=== PATIENT | female | born 1990 | race Caucasian/White ===

== ENCOUNTER 2023-12-13 08:08 | Day surgery (SDC) | payer BC ==
[2023-12-13] MEDS: Lactated Ringers 1,000 ML IV SCH (08:18)
[2023-12-13] MEDS ORDERED: Ketamine 200 MG/20 ML MDV ONE (08:32)
[2023-12-13] MEDS ORDERED: fentaNYL 50 MCG/ML SDV ONE (08:32)
[2023-12-13] MEDS ORDERED: Propofol 200 MG/20 ML SDV ONE ×2 (08:32)
[2023-12-13] MEDS ORDERED: Midazolam 1 MG/ML 2 ML SDV ONE (08:32)
[2023-12-13] MEDS ORDERED: Lidocaine 2% 20 ML MDV ONE (08:32)
== END 2023-12-13 10:00 | disposition home or self-care (01) ==
LOC: CC.SDS 08:08
PROVIDERS: ATTEND Family Medicine
DX: K29.50 Unspecified chronic gastritis without bleeding (principal); K21.9 Gastro-esophageal reflux disease without esophagitis; I10 Essential (primary) hypertension; F32.A Depression, unspecified; E78.5 Hyperlipidemia, unspecified; E04.1 Nontoxic single thyroid nodule; R07.9 Chest pain, unspecified; M19.90 Unspecified osteoarthritis, unspecified site; Z79.899 Other long term (current) drug therapy
CPT/HCPCS: 00813; 87081; J2250; J2704; J3010; J3490; J7120